=== PATIENT | female | born 1985 | race Hispanic/Latino ===

== ENCOUNTER 2020-02-23 05:03 | Inpatient (IN) | payer BC, MEDICAID ==
[~2020-02-23] VITALS: Ht 154.9 cm; Wt 97.1 kg
[2020-02-23] MEDS ORDERED: LACTATED RINGERS 1000ML 1,000 ML IV PRN (05:04)
[2020-02-23] MEDS ORDERED: BUTORPHANOL TARTRATE 2 MG/ML IVP PRN (05:15)
[2020-02-23] MEDS ORDERED: EPHEDRINE SULFATE 50 MG/ML AMPULE IVP PRN (05:15)
[2020-02-23] MEDS ORDERED: OXYTOCIN 10 USP UNITS/ML 20 UNIT in LACTATED RINGERS 1000ML 1,000 ML IV SCH (05:15)
[2020-02-23] MEDS ORDERED: ROPIVACAINE 0.2% 100ML VIAL 100 ML EP SCH (05:15)
[2020-02-23] MEDS ORDERED: NALOXONE HCL 0.4 MG/1 ML ML IV PRN (05:15)
[2020-02-23] MEDS ORDERED: LACTATED RINGERS 500 ML 500 ML IV PRN (05:15)
[2020-02-23 06:05] LABS: HEMATOCRIT 36.6 % (36-48); MEAN CORPUSCULAR HEMOGLOBIN 31.1 pg (27.0-33.0); MEAN CORPUSCULAR HGB CONC 33.6 g/dL (32.0-36.0); MEAN CORPUSCULAR VOLUME 92.4 fL (79-99); RED BLOOD CELL COUNT(AUTO) 3.96 MIL/uL (4.00-5.50); RED CELL DISTRIBUTION WIDTH 13.6 % (11.0-15.5); WHITE BLOOD COUNT (AUTO) 10.1 K/uL (4.8-10.8)
[2020-02-23 06:13] LABS: APPEARANCE,URINE CLOUDY (CLEAR); BILIRUBIN,URINE SMALL (NEGATIVE); COLOR,URINE YELLOW (YELLOW); GLUCOSE, URINE (UA) NEGATIVE (NEGATIVE); KETONES,URINE NEGATIVE (NEGATIVE); LEUKOCYTE ESTERASE ,URINE TRACE (NEGATIVE); NITRATE,URINE NEGATIVE (NEGATIVE); OCCULT BLOOD,URINE MODERATE (NEGATIVE); PROTEIN,URINE NEGATIVE (NEGATIVE)
[2020-02-23 06:25] LABS: BACTERIA,URINE Moderate /HPF (None Seen); CALCIUM OXALATE CRYSTALS,UR Few /LPF (None Seen); SQUAMOUS EPITHELIAL CELL,UR Moderate /HPF (0-2)
[2020-02-23] MEDS ORDERED: OXYTOCIN-LR 20 UNITS/1000 ML 1,000 ML IV ONE ×2 (06:25→13:06)
[2020-02-23] MEDS ORDERED: LIDOCAINE 2%-EPI 1:200,000 20 ML VIAL IJ ONE (11:38)
[2020-02-23] MEDS ORDERED: WITCH HAZEL 1 PAD TP PRN (12:45)
[2020-02-23] MEDS ORDERED: LANOLIN 30GM OINTMENT TP PRN (12:45)
[2020-02-23] MEDS ORDERED: BENZOCAINE/LANOLIN/ALOE VERA 60 ML AEROSOL TP PRN (12:45)
[2020-02-23] MEDS ORDERED: ACETAMINOPHEN 325 MG TAB PO PRN (12:45)
[2020-02-23] MEDS ORDERED: OXYTOCIN-LR 20 UNITS/1000 ML 1,000 ML IV SCH (12:45)
[2020-02-23] MEDS ORDERED: DIPH,PERTUSS(ACELL),TET VAC/PF 0.5 ML VIAL IM PRN (12:45)
[2020-02-23] MEDS ORDERED: MEASLES/MUMPS/RUBELLA VACCINE, LIVE 0.5 ML/VIAL SQ PRN (12:45)
[2020-02-23] MEDS ORDERED: ACETAMINOPHEN-CODEINE 300/30MG TAB PO PRN (12:45)
--- NOTE | 2020-02-23 14:10 | NUR ---
Assisted to the bathroom, voided 300ml, pericare done, assisted back to bed. pt tolerated well. Addendum: 02/23/20 at 1846 by CAROLINE DELEON RN Amended: Links added.
[2020-02-23] MEDS ORDERED: METF-446 PO (15:36)
[2020-02-23] MEDS ORDERED: LABE200T5 PO (15:36)
[2020-02-23] MEDS: IBUPROFEN 600 MG TABLET PO PRN (15:38)
[2020-02-23 15:44] VITALS: BP 133/59
[2020-02-23 19:40] VITALS: BP 117/67
[2020-02-23] MEDS: DOCUSATE SODIUM 100 MG CAP PO SCH (21:03)
[2020-02-23 23:09] VITALS: BP 117/78
[2020-02-24 04:09] VITALS: BP 110/82
[2020-02-24] MEDS: IBUPROFEN 600 MG TABLET PO PRN (04:09)
[2020-02-24 07:45] VITALS: BP 123/87
--- NOTE | 2020-02-24 08:30 | NUR ---
Referral for Anxiety SW met with pt. who is pleasant, appropriate and cooperative. Pt. reported that this is her fourth and first delivery; named RAJESH Garcia. Pt. 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 Pt. denied any signs/symptoms of depression, denied thoughts of harm to self or others and denied any anxiety. According to pt., she experienced some anxiety during her as this was her fourth and no live births. In addition, pt. stated that some of the anxiety was also over her during the pandemic. Pt. reported that her mother is a strong support system who is at her bedside, as are all her siblings. Pt. is aware of signs/symptoms of depression and the need to contact her physician/[employer] if needed. Pt. provided with information on counseling for anxiety within the community as well as the EAP within her insurance; pt. voiced an understanding and receptive to material provided. Pt. is receiving [facility] and [employer] benefits; carseat in place. All utilities reportedly connected in the home and pt's mother will provide transportation home. [employer] will be Dr. Viveros. Pt. voiced no SS needs or concerns. Pt. to be d/c'd with baby when medically cleared. Addendum: 02/24/20 at 0935 by BOBBY BOB SS Amended: Links added.
[2020-02-24] MEDS: DOCUSATE SODIUM 100 MG CAP PO SCH (09:06)
[2020-02-24 10:14] LABS: HEPATITIS Bs ANTIGEN SCREEN P Negative (Negative)
[2020-02-24 12:00] VITALS: BP 109/67
--- NOTE | 2020-02-24 14:25 | NUR ---
PATIENT LEFT UNIT VIA WHEELCHAIR WITH BABY IN ARMS. PERSONAL VEHICLE USED FOR TRANSPORTATION. BABY SECURE IN CARSEAT. NO COMPLAINTS OR CONCERNS ADDRESSED FROM PATIENT ON DISCHARGE.
== END 2020-02-24 14:25 | disposition home or self-care (01) | DRG 806 ==
LOC: LDH 05:03 → WSH 15:30
PROVIDERS: ADMIT Obstetrics & Gynecology; ATTEND Obstetrics & Gynecology
PROC: 10E0XZZ Delivery of Products of Conception, External Approach (ICD-10-PCS; principal; 2020-02-23)
PROC: 0KQM0ZZ Repair Perineum Muscle, Open Approach (ICD-10-PCS; 2020-02-23)
PROC: 10907ZC Drainage of Amniotic Fluid, Therapeutic from Products of Conception, Via Natural or Artificial Opening (ICD-10-PCS; 2020-02-23)
PROC: 10907ZC Drainage of Amniotic Fluid, Therapeutic from Products of Conception, Via Natural or Artificial Opening (ICD-10-PCS; 2020-02-23)
PROC: 3E033VJ Introduction of Other Hormone into Peripheral Vein, Percutaneous Approach (ICD-10-PCS; 2020-02-23)
PROC: 3E0234Z Introduction of Serum, Toxoid and Vaccine into Muscle, Percutaneous Approach (ICD-10-PCS; 2020-02-23)
DX: O69.1XX0 Labor and delivery complicated by cord around neck, with compression, not applicable or unspecified (principal); O10.92 Unspecified pre-existing hypertension complicating childbirth; Z37.0 Single live birth; O70.1 Second degree perineal laceration during delivery; Z3A.38 38 weeks gestation of pregnancy; Z23 Encounter for immunization
CPT/HCPCS: 36415; 81001; 85027; 86592; 86850; 86900; 86901; 87088; 87340; 90715; A4314; A4606; G0378; J2590; J2795; J3490; J7120